=== PATIENT | female | born 1970 | race Caucasian/White ===

== ENCOUNTER 2017-06-07 12:13 | Emergency (ER) | payer OTHER ==
[~2017-06-07] VITALS: Ht 162.6 cm; Wt 63.5 kg
[~2017-06-07 12:13] MED LIST: HYDROMORPHONE HC4 MG PO; IBUPROFEN800 MG PO; KETOROLAC TROME10 MG PO; LISINOPRIL-HCT1 EAC1 PO; METOPROLOL TART25 MG PO; MILK OF MA400 MG/5 M PO; MIRALAX17 GM PO; OXYCODONE HCL5 MG PO; PERCOCET 5-3251 EACH PO; PRILOSEC20 MG PO; XARELTO10 MG PO
== END 2017-06-07 12:34 | disposition home or self-care (01) ==
LOC: ED 12:13
DX: Z00.8 Encounter for other general examination (principal)